=== PATIENT | female | born 1955 | race Caucasian/White ===

== ENCOUNTER 2018-09-28 13:13 | Emergency (ER) | payer MEDICARE, BC ==
[2018-09-28 13:20] VITALS: BP 191/123
[2018-09-28] MEDS ORDERED: Sodium Chloride 0.9% 10 ML Syringe FLUSH PRN (13:22)
--- NOTE | 2018-09-28 13:42 | CT ---
Head CT Technique: Multiple axial sections through the brain were obtained. Intravenous contrast was not utilized. Comparison: No prior intracranial imaging is available. Findings: Ventricles along with basal cisterns and sulci over the convexities are within normal limits for the patient's age. Old 8 mm infarct is noted within the left basal ganglia. Mild areas of diminished density are noted within the basal ganglia as well as within the periventricular white matter compatible with small vessel ischemic demyelination change. No other abnormal parenchymal densities are seen. No evidence of intracranial hemorrhage. No midline shift or mass effect is seen. Bone window settings were reviewed which show no acute calvarial abnormality. Visualized sinuses show minimal mucosal thickening within a posterior right ethmoid sinus. Impression: 1. Senescent changes as noted above. Old small infarct within the left basal ganglia. 2. Sinus finding which is felt to be incidental. 3. No acute intracranial abnormality is identified. Diagnostic code #2
--- NOTE | 2018-09-28 13:47 | EDM.PDOC ---
ED HPI GENERAL MEDICAL PROBLEM - General Chief Complaint: Neuro Symptoms/Deficits Stated Complaint: STROKE SX Time Seen by Provider: 09/28/18 13:15 Source of Information: Reports: Patient, Family History Limitations: Reports: No Limitations - History of Present Illness INITIAL COMMENTS - FREE TEXT/NARRATIVE: The patient presents with left sided facial droop, left arm and leg weakness. She woke up with it this morning about 8am. She went to be last night at 9: 30pm feeling fine. Her last time known well was 9:30pm on 09/27/18. She had a headache or migraine for the past 3 days. She has a history of migraines. She has never had a stroke before. She is not on any blood thinners except aspirin which she takes at night. She had trouble walking to the car. Her had to help her. She has no chest pain or shortness of breath. She has no abdominal pain, nausea or vomiting. She does have a history of hypertension. She never had an AL before. Onset: Gradual Duration: Day(s): (Last night at 9:30pm she was last known well) Location: Reports: Head Quality: Reports: Ache Severity: Moderate Improves with: Reports: None Worsens with: Reports: None Associated Symptoms: Reports: Headaches. Denies: Chest Pain, Cough, Fever/ Chills, Nausea/Vomiting, Shortness of Breath Headache Pain Score (Numeric/FACES): 6 - Related Data Allergies Allergy/AdvReac Type Severity Reaction Status Date / Time coconut oil Allergy Mild Facial Verified 09/28/18 13:20 Swelling meperidine HCl [From Demerol] Allergy Mild Facial Verified 09/28/18 13:20 Swelling nickel Allergy Mild Rash Verified 09/28/18 13:20 ibuprofen [From Motrin IB] AdvReac Mild Stomach Verified 09/28/18 13:20 Ache Home Meds: Home Meds Carisoprodol 350 mg PO QID PRN 11/11/14 [History] FLUoxetine HCl [Fluoxetine HCl] 40 mg PO DAILY 11/11/14 [History] Hydrocodone/Acetaminophen [Hydrocodon-Acetaminophn 10-325] 1 tab PO Q4HR PRN [History] Metoprolol Succinate [Toprol XL] 100 mg PO DAILY 11/11/14 [History] Ramipril [Altace] 10 mg PO DAILY 11/11/14 [History] amLODIPine Besylate [Amlodipine Besylate] 10 mg PO DAILY 11/11/14 [History] cloNIDine HCl [Clonidine HCl] 0.1 mg PO DAILY 11/11/14 [History] diazePAM [Valium] 5 mg PO QID PRN 11/11/14 [History] Aspirin [Lolly Chewable Aspirin] 81 mg PO BEDTIME 01/28/15 [History] Diclofenac Sodium [Voltaren] 75 mg PO BID 01/28/15 [History] Fish Oil/[place]-3 Fatty Acids [Fish Oil 1,000 MG] 1 gm PO DAILY 01/28/15 [History ] Multivitamin [Multi-Vitamin Daily] 1 tab PO DAILY 01/28/15 [History] SUMAtriptan Succinate [Imitrex] 100 mg PO TID PRN 01/28/15 [History] Zinc 50 mg PO DAILY 01/28/15 [History] Past Medical History HEENT History: Reports: Impaired Vision Other HEENT History: 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 Cardiovascular History: Reports: Hypertension Other Cardiovascular History: Echo - SB 57, Bilateral Atrial Enlg, Mod MR and AR , Mod. 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 Other Musculoskeletal Surgeries/Procedures:: Bilateral shoulder surgery to remove spurs, right knee surgery X 3, left knee surgery x2, bilateral carpal tunel surgery, surgery to neck to remove spur off the posterior cervical spine, bone spur removal on L wrist, r middle toe, and r thumb, cortisone injections q 3-4 months to lower back Social & Family History - Family History Family Medical History: Noncontributory - Tobacco Use Smoking Status *Q: Current Every Day Smoker Years of Tobacco use: 16 Packs/Tins Daily: 1 Used Tobacco, but Quit: No Second Hand Smoke Exposure: No - Caffeine Use Caffeine Use: Reports: Coffee, Soda - Recreational Drug Use Recreational Drug Use: No ED ROS GENERAL - Review of Systems Review Of Systems: See Below Constitutional: Reports: No Symptoms HEENT: Reports: No Symptoms Respiratory: Reports: No Symptoms Cardiovascular: Reports: No Symptoms Endocrine: Reports: No Symptoms GI/Abdominal: Reports: No Symptoms : Reports: No Symptoms Musculoskeletal: Reports: No Symptoms Neurological: Reports: Headache, Weakness (Left face, arm and leg) ED EXAM, NEURO - Physical Exam Exam: See Below Exam Limited By: No Limitations General Appearance: Alert, No Apparent Distress Ears: Normal External Exam Nose: Normal Inspection Head Exam: Atraumatic, Normocephalic, Other (Left sided facial droop) Neck: Normal Inspection, Supple, Non-Tender Respiratory/Chest: No Respiratory Distress, Lungs Clear, Normal Breath Sounds Cardiovascular: Regular Rate, Rhythm, No Edema, No Murmur GI/Abdominal: Soft, Non-Tender, No Organomegaly, No Mass Neurological: Alert, Oriented x 3, Other (Moderate left sided facial droop, moderate weakness to her left arm with drift, and mild weakness to the left leg) EKG INTERPRETATION EKG Date: 09/28/18 Time: 13:27 Rhythm: Other (sinus tachycardia) Rate (Beats/Min): 104 [place]: LAD-Left [place] Deviation P-Wave: Present QRS: Normal ST-T: Normal QT: Prolonged EKG Interpretation Comments: Q waves in the inferior leads Course - Vital Signs Last Recorded V/S: Last Vital Signs Temp 97.0 F 09/28/18 13:14 Pulse 108 H 09/28/18 13:14 Resp 18 09/28/18 13:14 BP 191/123 H 09/28/18 13:14 Pulse Ox 95 09/28/18 13:14 - Orders/Labs/Meds Orders: Active Orders 24 hr Category Date Time Status Cardiac Monitoring [RC] . DIRECTED Care 09/28/18 13:22 Active EKG Documentation Completion [RC] STAT Care 09/28/18 13:23 Active Peripheral IV Care [RC] . DIRECTED Care 09/28/18 13:23 Active CXR [Chest 1V Frontal] [CR] Stat Exams 09/28/18 14:02 Ordered Sodium Chloride 0.9% [Saline Flush] Med 09/28/18 13:22 Active 10 ml FLUSH ASDIRECTED PRN Peripheral IV Insertion Adult [OM.PC] Stat Oth 09/28/18 13:22 Ordered Medication Orders Sodium Chloride (Saline Flush) 10 ml FLUSH ASDIRECTED PRN PRN Reason: Keep Vein Open Last Admin: 09/28/18 13:56 Dose: 10 ml Labs: Laboratory Tests 09/28/18 09/28/18 09/28/18 Range/Units 13:19 13:21 13:21 WBC 10.12 H (3.98-10.04) K/mm3 RBC 5.56 H (3.98-5.22) M/mm3 Hgb 15.7 (11.2-15.7) gm/L Hct 46.7 H (34.1-44.9) % MCV 84.0 (79.4-94.8) fl MCH 28.2 (25.6-32.2) pg MCHC 33.6 (32.2-35.5) g/dl RDW Std Deviation 44.8 (36.4-46.3) fL Plt Count 339 (182-369) K/mm3 MPV 10.8 (9.4-12.3) fl Neut % (Auto) 61.0 (34.0-71.1) % Lymph % (Auto) 31.4 (19.3-51.7) % [place]ickson % (Auto) 5.9 (4.7-12.5) % Eos % (Auto) 0.9 (0.7-5.8) Baso % (Auto) 0.6 (0.1-1.2) % Neut # (Auto) 6.17 H (1.56-6.13) K/mm3 Lymph # (Auto) 3.18 (1.18-3.74) K/mm3 [place]on # (Auto) 0.60 H (0.24-0.36) K/mm3 Eos # (Auto) 0.09 (0.04-0.36) K/mm3 Baso # (Auto) 0.06 (0.01-0.08) K/mm3 Manual Slide Review Normal smear PT 10.4 (9.5-12.1) SECONDS INR 0.95 APTT 29 (24-31) SECONDS Sodium (136-145) mEq/L Potassium (3.5-5.1) mEq/L Chloride (98-107) mEq/L Carbon Dioxide (21-32) mEq/L Anion Gap (5-15) BUN (7-18) mg/dL Creatinine (0.55-1.02) mg/dL Est Cr Clr Drug Dosing mL/min Estimated GFR (MDRD) (>60) mL/min BUN/Creatinine Ratio (14-18) Glucose (80-115) mg/dL POC Glucose 175 H (80-115) mg/dL Calcium (8.5-10.1) mg/dL Total Bilirubin (0.2-1.0) mg/dL AST (15-37) U/L ALT (14-59) U/L Alkaline Phosphatase (46-116) U/L Troponin I (0.00-0.056) ng/mL Total Protein (6.4-8.2) g/dl Albumin (3.4-5.0) g/dl Globulin gm/dL Albumin/Globulin Ratio (1-2) 09/28/18 Range/Units 13:21 WBC (3.98-10.04) K/mm3 RBC (3.98-5.22) M/mm3 Hgb (11.2-15.7) gm/L Hct (34.1-44.9) % MCV (79.4-94.8) fl MCH (25.6-32.2) pg MCHC (32.2-35.5) g/dl RDW Std Deviation (36.4-46.3) fL Plt Count (182-369) K/mm3 MPV (9.4-12.3) fl Neut % (Auto) (34.0-71.1) % Lymph % (Auto) (19.3-51.7) % [place]ickson % (Auto) (4.7-12.5) % Eos % (Auto) (0.7-5.8) Baso % (Auto) (0.1-1.2) % Neut # (Auto) (1.56-6.13) K/mm3 Lymph # (Auto) (1.18-3.74) K/mm3 [place] # (Auto) (0.24-0.36) K/mm3 Eos # (Auto) (0.04-0.36) K/mm3 Baso # (Auto) (0.01-0.08) K/mm3 Manual Slide Review PT (9.5-12.1) SECONDS INR APTT (24-31) SECONDS Sodium 140 (136-145) mEq/L Potassium 3.1 L (3.5-5.1) mEq/L Chloride 99 (98-107) mEq/L Carbon Dioxide 29 (21-32) mEq/L Anion Gap 15.1 H (5-15) BUN 10 (7-18) mg/dL Creatinine 1.1 H (0.55-1.02) mg/dL Est Cr Clr Drug Dosing 43.81 mL/min Estimated GFR (MDRD) 50 (>60) mL/min BUN/Creatinine Ratio 9.1 L (14-18) Glucose 183 H (80-115) mg/dL POC Glucose (80-115) mg/dL Calcium 10.2 H (8.5-10.1) mg/dL Total Bilirubin 0.7 (0.2-1.0) mg/dL AST 29 (15-37) U/L ALT 25 (14-59) U/L Alkaline Phosphatase 122 H (46-116) U/L Troponin I 0.221 H* (0.00-0.056) ng/mL Total Protein 8.6 H (6.4-8.2) g/dl Albumin 4.0 (3.4-5.0) g/dl Globulin 4.6 gm/dL Albumin/Globulin Ratio 0.9 L (1-2) Meds: Medications Generic Name Dose Route Start Last Admin Trade Name Freq PRN Reason Stop Dose Admin Sodium Chloride 10 ml 09/28/18 13:22 09/28/18 13:56 Saline Flush FLUSH 10 ml ASDIRECTED PRN Administration Keep Vein Open - Re-Assessments/Exams Free Text/Narrative Re-Assessment/Exam: 09/28/18 14:19 A stroke alert was called. I went into the room right away. The patient was last known well at 9:30pm last night. A CT was done that shows senescent changes. Old small infarct within the left basal ganglia. Sinus finding which is felt to be incidental. No acute intracranial abnormality is identified. I ordered an IV saline lock, EKG, and labs. Her EKG shows a sinus tachycardia with Q waves in the inferior leads. Her WBC was elevated at 10.12. PT, INR and PTT were normal. Her K was low at 3.1. Her creatinine was slightly elevated at 1.1. Her glucose was 183. Her troponin was elevated at 0.221. I called [facility] in [place] and talked with Dr Mccormick in the ER and we both agreed she was way out of window for thrombolytics. He did accept the patient. I did have to call him back and because I did not have the troponin back yet. It was elevated. She has no chest pain. I am not sure if this is a nonSTEMI. He did recommend an aspirin but first get a CXR to look for a widened mediastinum. I did a CXR and there was no widened mediastinum. We talked about flying the patient by helicopter but [employer] helicopter was down for maintenance. Ground ambulance will be taking the patient. Departure - Departure Time of Disposition: 14:30 Disposition: DC/Tfer to [facility] Clinical Impression: Elevated troponin, Hypokalemia CVA (cerebral vascular accident) Qualifiers: CVA mechanism: unspecified Qualified Code(s): I63.9 - Cerebral infarction, unspecified - Discharge Information Referrals: Vadim Caraballo Jr, MD [Primary Care Provider] - Forms: ED Department Discharge - My Orders Last 24 Hours: My Active Orders 09/28/18 13:22 Cardiac Monitoring [RC] . DIRECTED Sodium Chloride 0.9% [Saline Flush] 10 ml FLUSH ASDIRECTED PRN Peripheral IV Insertion Adult [OM.PC] Stat 09/28/18 13:23 EKG Documentation Completion [RC] STAT Peripheral IV Care [RC] . DIRECTED 09/28/18 14:02 CXR [Chest 1V Frontal] [CR] Stat - Assessment/Plan Last 24 Hours: My Active Orders 09/28/18 13:22 Cardiac Monitoring [RC] . DIRECTED Sodium Chloride 0.9% [Saline Flush] 10 ml FLUSH ASDIRECTED PRN Peripheral IV Insertion Adult [OM.PC] Stat 09/28/18 13:23 EKG Documentation Completion [RC] STAT Peripheral IV Care [RC] . DIRECTED 09/28/18 14:02 CXR [Chest 1V Frontal] [CR] Stat
[2018-09-28] MEDS ORDERED: Aspirin 81 MG Tab.Chew PO ONE (14:13)
[2018-09-28] MEDS ORDERED: Aspirin 81 MG Tab.Chew ONE (14:14)
--- NOTE | 2018-09-28 14:26 | CR ---
Chest: Portable view of the chest was obtained. Comparison: Prior chest x-ray of 05/29/15. Heart size is normal. Slight tortuosity of the thoracic aorta is seen. Minimal scoliosis is noted. Prior cervical spine surgery is seen. Penciling of the distal clavicles are noted which can be seen from prior surgery as well as from rheumatoid arthritis. Surgical clips are seen from prior cholecystectomy. Impression: 1. Findings which are felt to be incidental as described above. Nothing acute is appreciated. Diagnostic code #2
== END 2018-09-28 14:30 ==
LOC: JD.ED 13:13
DX: I63.9 Cerebral infarction, unspecified (principal); E87.6 Hypokalemia; R79.89 Other specified abnormal findings of blood chemistry; I10 Essential (primary) hypertension; F17.210 Nicotine dependence, cigarettes, uncomplicated; Z79.899 Other long term (current) drug therapy; Z88.8 Allergy status to other drugs, medicaments and biological substances; Z79.82 Long term (current) use of aspirin
CPT/HCPCS: 36415; 70450; 71045; 80053; 82962; 84484; 85025; 85610; 85730; 93005; 99285; A9270

== ENCOUNTER 2018-10-20 09:32 | Emergency (ER) | payer MEDICARE, BC ==
[2018-10-20] MEDS ORDERED: Sodium Chloride 0.9% 10 ML Syringe FLUSH PRN (09:49)
[2018-10-20] MEDS ORDERED: cloNIDine 0.1 MG Tab PO ONE (09:49)
--- NOTE | 2018-10-20 10:11 | EDM.PDOC ---
ED HPI GENERAL MEDICAL PROBLEM - General Chief Complaint: Chest Pain Stated Complaint: [facility] Time Seen by Provider: 10/20/18 09:41 Source of Information: Reports: Patient, RN Notes Reviewed - History of Present Illness INITIAL COMMENTS - FREE TEXT/NARRATIVE: 63-year-old female group home resident developed left-sided anterior chest discomfort about 2 hours ago that did radiate to her back, left shoulder and an arm lasting about 1 hour. The discomfort now is gone. However she did get nauseated, short of breath with that and it was quite intense. She does have history of hypertension. She has history of recent CVA about 2 weeks ago with resultant left-sided weakness. She is not aware of any prior history for coronary artery disease. No abdominal or chest discomfort at this time and she is no longer short of breath. Mid-Sternal Chest Pain Score (Numeric/FACES): 4 - Related Data Allergies Allergy/AdvReac Type Severity Reaction Status Date / Time coconut oil Allergy Mild Facial Verified 10/20/18 09:37 Swelling meperidine HCl [From Demerol] Allergy Mild Facial Verified 10/20/18 09:37 Swelling nickel Allergy Mild Rash Verified 10/20/18 09:37 ibuprofen [From Motrin IB] AdvReac Mild Stomach Verified 10/20/18 09:37 Ache Home Meds: Home Meds Metoprolol Succinate [Toprol XL] 100 mg PO DAILY 11/11/14 [History] Ramipril [Altace] 10 mg PO DAILY 11/11/14 [History] cloNIDine HCl [Clonidine HCl] 0.2 mg PO Q8HR 11/11/14 [History] SUMAtriptan Succinate [Imitrex] 100 mg PO BID PRN 01/28/15 [History] Acetaminophen [Tylenol] 500 mg PO TID 10/20/18 [History] Aspirin [Ecotrin] 81 mg PO DAILY 10/20/18 [History] Bisacodyl [Dulcolax] 10 mg RECTAL DAILY PRN 10/20/18 [History] Cyclobenzaprine [Flexeril] 5 mg PO TID PRN 10/20/18 [History] FLUoxetine [PROzac] 40 mg PO DAILY 10/20/18 [History] Nicotine [Nicotine Patch] 14 mg TD DAILY 10/20/18 [History] Oxybutynin Chloride 5 mg PO DAILY 10/20/18 [History] Sennosides/Docusate Sodium [Senna Plus Tablet] 1 tab PO BID 10/20/18 [History] atorvaSTATin Calcium [Lipitor] 40 mg PO QPM 10/20/18 [History] Past Medical History HEENT History: Reports: Impaired Vision Other HEENT History: 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 Cardiovascular History: Reports: Hypertension Other Cardiovascular History: Echo - SB 57, Bilateral Atrial Enlg, Mod MR and AR , Mod. 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 Other Musculoskeletal Surgeries/Procedures:: Bilateral shoulder surgery to remove spurs, right knee surgery X 3, left knee surgery x2, bilateral carpal tunel surgery, surgery to neck to remove spur off the posterior cervical spine, bone spur removal on L wrist, r middle toe, and r thumb, cortisone injections q 3-4 months to lower back Social & Family History - Family History Family Medical History: Noncontributory - Tobacco Use Smoking Status *Q: Former Smoker Years of Tobacco use: 30 Packs/Tins Daily: 0.5 Used Tobacco, but Quit: Yes Month/Year Tobacco Last Used: 09/2018 Second Hand Smoke Exposure: Yes - Caffeine Use Caffeine Use: Reports: Coffee, Soda - Recreational Drug Use Recreational Drug Use: No ED ROS GENERAL - Review of Systems Review Of Systems: See Below Constitutional: Denies: Fever, Chills, Diaphoresis HEENT: Denies: Throat Pain Respiratory: Reports: Shortness of Breath (Gone). Denies: Pleuritic Chest Pain Cardiovascular: Reports: Chest Pain GI/Abdominal: Reports: Nausea. Denies: Abdominal Pain (Gone), Vomiting (Gone) Musculoskeletal: Reports: Shoulder Pain, Arm Pain, Back Pain Skin: Reports: No Symptoms Neurological: Reports: No Symptoms ED EXAM, GENERAL - Physical Exam Exam: See Below General Appearance: Alert, No Apparent Distress Eye Exam: Bilateral Eye: PERRL Throat/Mouth: Normal Inspection Head: Atraumatic. No: Facial Swelling Neck: Supple, Full Range of Motion Respiratory/Chest: No Respiratory Distress, Lungs Clear, Normal Breath Sounds, Chest Non-Tender Cardiovascular: Regular Rate, Rhythm GI/Abdominal: Soft, Non-Tender. No: Guarding Extremities: No: Leg Pain, Increased Warmth, Redness Neurological: Alert, Other (She has a left-sided facial droop and left-sided upper and lower extremity weakness) Skin Exam: Warm, Dry, Normal Color EKG INTERPRETATION EKG Date: 10/20/18 Rhythm: NSR [place]: Normal P-Wave: Present QRS: Other (There are Q waves leads 3 and aVF inferiorly) ST-T: Elevated (There is very mild ST elevation in lead 3) Course - Vital Signs Last Recorded V/S: Last Vital Signs Temp 97.7 F 10/20/18 14:00 Pulse 58 L 10/20/18 14:00 Resp 20 10/20/18 14:00 BP 140/69 10/20/18 14:00 Pulse Ox 96 10/20/18 14:00 - Orders/Labs/Meds Orders: Active Orders 24 hr Category Date Time Status EKG 12 Lead [EKG Documentation Completion] [RC] STAT Care 10/20/18 10:05 Active Peripheral IV Care [RC] . DIRECTED Care 10/20/18 09:49 Active Chest 1V Frontal [CR] Stat Exams 10/20/18 09:49 Taken Peripheral IV Insertion Adult [OM.PC] Stat Oth 10/20/18 09:49 Ordered Labs: Laboratory Tests 10/20/18 10/20/18 10/20/18 Range/Units 10:08 10:08 12:25 WBC 11.25 H (3.98-10.04) K/mm3 RBC 4.71 (3.98-5.22) M/mm3 Hgb 13.3 (11.2-15.7) gm/L Hct 39.3 (34.1-44.9) % MCV 83.4 (79.4-94.8) fl MCH 28.2 (25.6-32.2) pg MCHC 33.8 (32.2-35.5) g/dl RDW Std Deviation 43.2 (36.4-46.3) fL Plt Count 242 (182-369) K/mm3 MPV 11.3 (9.4-12.3) fl Neut % (Auto) 66.8 (34.0-71.1) % Lymph % (Auto) 26.8 (19.3-51.7) % [place] % (Auto) 4.2 L (4.7-12.5) % Eos % (Auto) 1.6 (0.7-5.8) Baso % (Auto) 0.5 (0.1-1.2) % Neut # (Auto) 7.52 H (1.56-6.13) K/mm3 Lymph # (Auto) 3.01 (1.18-3.74) K/mm3 [place] # (Auto) 0.47 H (0.24-0.36) K/mm3 Eos # (Auto) 0.18 (0.04-0.36) K/mm3 Baso # (Auto) 0.06 (0.01-0.08) K/mm3 Sodium 141 (136-145) mEq/L Potassium 3.2 L (3.5-5.1) mEq/L Chloride 104 (98-107) mEq/L Carbon Dioxide 26 (21-32) mEq/L Anion Gap 14.2 (5-15) BUN 13 (7-18) mg/dL Creatinine 0.9 (0.55-1.02) mg/dL Est Cr Clr Drug Dosing 52.66 mL/min Estimated GFR (MDRD) > 60 (>60) mL/min BUN/Creatinine Ratio 14.4 (14-18) Glucose 128 H (80-115) mg/dL Calcium 9.3 (8.5-10.1) mg/dL Total Bilirubin 0.3 (0.2-1.0) mg/dL AST 23 (15-37) U/L ALT 24 (14-59) U/L Alkaline Phosphatase 91 (46-116) U/L Troponin I < 0.017 < 0.017 (0.00-0.056) ng/mL Total Protein 7.3 (6.4-8.2) g/dl Albumin 3.7 (3.4-5.0) g/dl Globulin 3.6 gm/dL Albumin/Globulin Ratio 1.0 (1-2) Ethyl Alcohol 0.00 (0.00) gm% Meds: Medications Discontinued Medications Generic Name Dose Route Start Last Admin Trade Name Gloria PRN Reason Stop Dose Admin Acetaminophen 975 mg 10/20/18 11:21 10/20/18 11:57 Tylenol PO 10/20/18 11:22 975 mg NOW ONE Administration Clonidine HCl 0.1 mg 10/20/18 09:49 10/20/18 10:14 Catapres PO 10/20/18 09:50 0.1 mg ONETIME ONE Administration Potassium Chloride 20 meq 10/20/18 11:22 10/20/18 11:58 Klor-Con M20 PO 10/20/18 11:23 20 meq ONETIME ONE Administration Sodium Chloride 10 ml 10/20/18 09:49 10/20/18 10:00 Saline Flush FLUSH 10 ml ASDIRECTED PRN Administration Keep Vein Open - Re-Assessments/Exams Free Text/Narrative Re-Assessment/Exam: 10/20/18 11:04 EKG as noted shows Q waves inferiorly leads slight ST elevation in lead 3 inferiorly. Initial troponins come back negative. Her blood pressure was really high on the scene and still high on arrival to ED around 213 systolic. We did give a dose of clonidine 0.1 mg by mouth. His helped and with time her blood pressure has trended down to a current level of 168/92. She remains in sinus rhythm, no ectopy. Continues pain-free while here in the ED. Her potassium is mildly low at 3.2. We'll plan to do a 2 hour troponin which will be about 4 hours after onset of her pain 8:00 this past morning. We'll plan to give her some oral potassium after she has had something to eat. Departure - Departure Time of Disposition: 13:13 Disposition: DC/Tfer to [facility] [place] [facility] Reason for Transfer *Q: Other Condition: Fair Clinical Impression: Atypical chest pain Hypertension Qualifiers: Hypertension type: essential hypertension Qualified Code(s): I10 - Essential ( primary) hypertension Headache Qualifiers: Headache type: unspecified Headache chronicity pattern: acute headache Intractability: not intractable Qualified Code(s): R51 - Headache Instructions: Nonspecific Chest Pain, [id number], Hypertension, [id number] Referrals: Vadim Caraballo Jr, MD [Primary Care Provider] - Forms: ED Department Discharge Additional Instructions: Continue current medications as prescribed, it will be important for group home staff to try give your meds as soon as possible in the morning. Follow-up clinic as needed, return to ED as needed if symptoms worsening in any way. - My Orders Last 24 Hours: My Active Orders 10/20/18 09:49 Peripheral IV Care [RC] . DIRECTED Chest 1V Frontal [CR] Stat Peripheral IV Insertion Adult [OM.PC] Stat 10/20/18 10:05 EKG 12 Lead [EKG Documentation Completion] [RC] STAT - Assessment/Plan Last 24 Hours: My Active Orders 10/20/18 09:49 Peripheral IV Care [RC] . DIRECTED Chest 1V Frontal [CR] Stat Peripheral IV Insertion Adult [OM.PC] Stat 10/20/18 10:05 EKG 12 Lead [EKG Documentation Completion] [RC] STAT
[2018-10-20] MEDS ORDERED: Acetaminophen 325 MG Tab PO ONE (11:21)
[2018-10-20] MEDS ORDERED: Potassium Chloride 20 MEQ Tab.ER PO ONE (11:22)
--- NOTE | 2018-10-20 12:28 | CT ---
Addendum: Side discrepancy noted between body and impression. Previous report states an old infarct within left basal ganglia which is incorrect and should be right basal ganglia. --- Addendum1 above dictated on [10/22/2018 17:20] by [Tremaine Pope, Lupillo Gregg] --- --- Addendum1 above signed on [10/23/2018 08:41] by [Tremaine Pope Hilton J.] --- --- Original report below dictated on [10/20/2018 12:26] by [Tremaine Pope Hilton J.] --- --- Original report below signed on [10/20/2018 12:26] by [Tremaine Pope Hilton J.] --- Head CT Technique: Multiple axial sections through the brain were obtained. Intravenous contrast was not utilized. Comparison: Prior head CT study of 09/28/18. Findings: Ventricles along with basal cisterns and sulci over the convexities are within normal limits for the patient's age. Old small infarct is noted within the left basal ganglia which is stable. Diminished density is noted within portions of the periventricular white matter compatible with small vessel ischemic demyelination change. Possible small old white matter infarct is noted on the left side next to the lateral ventricle within the white matter. No other abnormal parenchymal densities are seen. No evidence of intracranial hemorrhage. No midline shift or mass effect is seen. Bone window settings were reviewed which shows no acute calvarial abnormality. Visualized sinuses shows minimal mucosal thickening inferiorly within the right mastoid sinus which is likely incidental. Impression: 1. 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 Probable small old infarct within the periventricular white matter adjacent to the right lateral ventricle. 2. 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 3. Nothing acute is seen intracranially. 4. Slight findings within the right mastoid sinus which are felt to be incidental. Diagnostic code #2 --- Addendum1 signed ---
[2018-10-20 14:28] VITALS: BP 140/69
--- NOTE | 2018-10-21 18:27 | CR ---
Chest: Portable view of the chest was obtained. Comparison: Prior chest x-ray of 09/28/18. Heart size is normal. Tortuous thoracic aorta is seen. Lungs are clear. Previous cervical spine surgery is noted. Surgical clips are seen within the upper right abdomen. Scoliosis is noted within the spine most of which appears to be positional. Penciling of the distal clavicle is again noted which is stable and is nonacute. Impression: 1. Incidental findings. Nothing acute is seen. Diagnostic code #2
== END 2018-10-20 14:00 ==
LOC: JD.ED 09:32
DX: R07.89 Other chest pain (principal); I10 Essential (primary) hypertension; Z87.891 Personal history of nicotine dependence; Z79.82 Long term (current) use of aspirin; Z79.899 Other long term (current) drug therapy; Z91.09 Other allergy status, other than to drugs and biological substances; Z88.6 Allergy status to analgesic agent; Z88.8 Allergy status to other drugs, medicaments and biological substances; Z88.5 Allergy status to narcotic agent
CPT/HCPCS: 36415; 70450; 71045; 80053; 84484; 85025; 93005; 99285; A9270; G0480; 93010; 99284

== ENCOUNTER 2022-12-18 05:43 | Emergency (ER) | payer MEDICARE, BC ==
[2022-12-18] MEDS ORDERED: Aspirin 81 MG Tab.Chew PO ONE (06:59)
[2022-12-18] MEDS ORDERED: Heparin Sodium 5,000 Units/ML Vial IVPUSH ONE (07:09)
[2022-12-18] MEDS ORDERED: Heparin Sodium/D5W 25,000 UNITS/500 ML BAG IV SCH (07:15)
[2022-12-18 08:12] VITALS: BP 184/89; PULSE 82
== END 2022-12-18 08:00 ==
LOC: JD.ED 05:43
DX: I21.4 Non-ST elevation (NSTEMI) myocardial infarction (principal); R09.02 Hypoxemia; I10 Essential (primary) hypertension; Z86.73 Personal history of transient ischemic attack (TIA), and cerebral infarction without residual deficits; Z91.048 Other nonmedicinal substance allergy status; Z88.5 Allergy status to narcotic agent; Z88.8 Allergy status to other drugs, medicaments and biological substances; Z79.899 Other long term (current) drug therapy
CPT/HCPCS: 36415; 71045; 80053; 83880; 84484; 85025; 85379; 85730; 93005; 96365; 99285; A9270; J1644; 93010

== ENCOUNTER 2024-06-13 14:14 | Emergency (ER) | payer BC, MEDICARE ==
[2024-06-13 14:45] LABS: BASOPHILS ABSOLUTE AUTO 0.1 K/mm3 (0.0-0.2); BASOPHILS PERCENT AUTO 1.2 % (0.0-1.0); EOSINOPHILS ABSOLUTE AUTO 0.1 K/mm3 (0.0-0.4); EOSINOPHILS PERCENT AUTO 2.4 % (0.0-6.0); HEMATOCRIT 40.3 % (37.0-47.0); HEMOGLOBIN 13.2 gm/dl (12.0-16.0); IMMATURE GRAN ABSOLUTE AUTO 0.02 K/mm3 (0.00-0.05); IMMATURE GRAN PERCENT AUTO 0.3 % (0.0-0.4); LYMPHOCYTES ABSOLUTE AUTO 2.2 K/mm3 (1.0-4.8); LYMPHOCYTES PERCENT AUTO 36.8 % (24.0-44.0); MEAN CORPUSCULAR HEMOGLOBIN 27.7 pg (28.0-32.0); MEAN CORPUSCULAR HGB CONC 32.8 g/dl (32.0-36.0); MEAN CORPUSCULAR VOLUME 84.5 fl (83.0-99.0); MEAN PLATELET VOLUME 10.6 fl (9.4-12.3); MONOCYTES ABSOLUTE AUTO 0.3 K/mm3 (0.0-0.8); MONOCYTES PERCENT AUTO 5.4 % (0.0-8.0); NEUTROPHILS ABSOLUTE AUTO 3.2 K/mm3 (1.8-7.7); NEUTROPHILS PERCENT AUTO 53.9 % (41.0-71.0); PLATELET COUNT,PLT 253 K/mm3 (150-400); RED BLOOD CELL COUNT 4.77 M/mm3 (4.10-5.30); WHITE BLOOD CELL COUNT,WBC 5.93 K/mm3 (3.9-11.3)
[2024-06-13 15:09] LABS: ALBUMIN 3.6 g/dl (3.4-5.0); ANION GAP 13.8 (5-15); BILIRUBIN TOTAL 0.5 mg/dL (0.2-1.0); BUN/CREATININE RATIO 16.7 (14-18); C-REACTIVE PROTEIN 0.52 mg/dL (<0.30); CALCIUM 9.3 mg/dL (8.5-10.1); CREATININE 1.5 mg/dL (0.55-1.02); EST CRCL DRUG DOSING (CG) 29.7 mL/min; POTASSIUM,K 3.8 mEq/L (3.5-5.1); PROTEIN TOTAL,TP 7.4 g/dl (6.4-8.2)
[2024-06-13] MEDS: Acetaminophen 325 MG Tab PO ONE (15:55)
[2024-06-13 17:20] VITALS: BP 107/84; PULSE 82
== END 2024-06-13 17:25 | disposition home or self-care (01) ==
LOC: JD.ED 14:14
DX: I10 Essential (primary) hypertension (principal); R20.2 Paresthesia of skin; R51.9 Headache, unspecified; Z90.49 Acquired absence of other specified parts of digestive tract; Z90.710 Acquired absence of both cervix and uterus; Z79.899 Other long term (current) drug therapy; Z79.82 Long term (current) use of aspirin; Z91.048 Other nonmedicinal substance allergy status; Z91.018 Allergy to other foods; Z88.8 Allergy status to other drugs, medicaments and biological substances
CPT/HCPCS: 36415; 70450; 71045; 80053; 85025; 86140; 93005; 99285; A9270